=== PATIENT | female | born 1950 | race Caucasian/White ===

== ENCOUNTER 2016-11-09 16:31 | Emergency (ER) | payer BC, MEDICARE ==
[2016-11-09 17:02] LABS: BASOPHILS # (AUTO) 0.1 10^3/uL (0.0-0.1); EOSINOPHILS # (AUTO) 0.2 10^3/uL (0.0-0.7); EOSINOPHILS % (AUTO) 2.3 %; HCT - HEMATOCRIT 28.1 % (37.0-47.0); HGB - HEMOGLOBIN 8.8 g/dL (12.0-16.0); LYMPHOCYTES # (AUTO) 1.3 10^3/uL (1.5-3.5); LYMPHOCYTES % (AUTO) 16.6 %; MEAN CORPUSCULAR HEMOGLOBIN 24.4 pg (27.0-31.0); MEAN CORPUSCULAR HGB CONC 31.2 g/dL (32.0-36.0); MEAN CORPUSCULAR VOLUME 78.2 fL (81.0-99.0); MEAN PLATELET VOLUME 8.7 fL (7.9-10.8); MONOCYTES # (AUTO) 0.5 10^3/uL (0.0-1.0); MONOCYTES % (AUTO) 6.9 %; NEUTROPHILS # (AUTO) 5.6 10^3/uL (1.5-6.6); NEUTROPHILS % (AUTO) 73.2 %; RED BLOOD COUNT 3.59 10^6/uL (4.20-5.40); RED CELL DISTRIBUTION WIDTH 17.3 % (12.0-15.0); UNCORRECTED WHITE BLOOD COUNT 7.7 x10^3/uL; WHITE BLOOD COUNT 7.7 x10^3/uL (4.8-10.8)
[2016-11-09 17:19] LABS: ALBUMIN/GLOBULIN RATIO 1.2 (1.0-2.2); BILIRUBIN,TOTAL 0.4 mg/dL (0.2-1.0); CALCIUM 9.2 mg/dL (8.5-10.3); CREATININE 0.9 mg/dL (0.4-1.0); POTASSIUM 3.7 mmol/L (3.5-5.0); TOTAL PROTEIN 7.8 g/dL (6.7-8.2)
[2016-11-09 18:02] VITALS: BP 180/63
--- NOTE | 2016-11-09 18:03 | ED Physician Documentation ---
PD HPI DYSPNEA - Stated complaint Stated Complaint: SOA - Chief complaint Chief Complaint: General - History obtained from History obtained from: Patient - History of Present Illness Timing - onset: Yesterday Timing - onset during: Light activity (she was walking up a hil yesterday and felt short of breath for it, she says feeling similar to when she was anemic in the past.) Timing - details: Gradual onset, Now resolved Inciting event(s): No: Out of meds, URI Improved by: Rest Worsened by: Other (exertions) Associated symptoms: No: Fever, Cough, Wheezing, Chest pain / discomfort, Palpitations, Bilateral edema Similar symptoms before: Has not had sx before Recently seen: Not recently seen Review of Systems Constitutional: denies: Fever, Chills Nose: denies: Rhinorrhea / runny nose, Congestion Respiratory: denies: Cough GI: denies: Abdominal Pain, Nausea, Vomiting : denies: Dysuria, Frequency Neurologic: reports: Focal weakness, Seizure, Confused PD PAST MEDICAL HISTORY - Past Medical History Cardiovascular: None Respiratory: None Neuro: None Endocrine/Autoimmune: None - Past Surgical History Past Surgical History: Yes General: Appendectomy - Present Medications Home Medications: Ambulatory Orders Medication Instructions Recorded Confirmed Ferrous Sulfate 325 mg PO DAILY #30 tablet 11/09/16 traMADol [Ultram] 50 mg PO DAILY PRN 11/09/16 11/09/16 - Allergies Allergies/Adverse Reactions: Allergies Allergy/AdvReac Type Severity Reaction Status Date / Time sulfamethoxazole Allergy Itching Verified 11/09/16 16:42 [From ] trimethoprim [From ] Allergy Itching Verified 11/09/16 16:42 - Social History Does the pt smoke?: No Smoking Status: Never smoker Does the pt drink ETOH?: Yes Does the pt have substance abuse?: No - POLST Patient has POLST: No PD ED PE NORMAL - Vitals Vital signs reviewed: Yes - General General: Alert and oriented X 3, No acute distress, Well developed/nourished - HEENT HEENT: Pharynx benign - Neck Neck: Supple, no meningeal sign, No adenopathy - Cardiac Cardiac: RRR, No murmur - Respiratory Respiratory: Clear bilaterally - Abdomen Abdomen: Soft, Non tender - Extremities Extremities: No edema, No calf tenderness / cord Results - Vitals Vitals: Vital Signs - 24 hr 11/09/16 11/09/16 16:40 17:59 Temperature 36.7 C Heart Rate 93 81 Respiratory 14 16 Rate Blood Pressure 161/87 H 180/63 H O2 Saturation 98 97 Oxygen O2 Source Room air - Labs Labs: Laboratory Tests 11/09/16 11/09/16 11/09/16 16:57 16:57 16:57 WBC 7.7 RBC 3.59 L Hgb 8.8 L Hct 28.1 L MCV 78.2 L MCH 24.4 L MCHC 31.2 L RDW 17.3 H Plt Count 329 MPV 8.7 Neut # 5.6 Lymph # 1.3 L [place] # 0.5 Eos # 0.2 Baso # 0.1 Absolute Nucleated RBC 0.00 Nucleated RBCs 0.0 Sodium 140 Potassium 3.7 Chloride 104 Carbon Dioxide 27 Anion Gap 9.0 BUN 10 Creatinine 0.9 Estimated GFR (MDRD) 63 L Glucose 119 H Calcium 9.2 Iron 15 L TIBC 493 H % Saturation 3 L Transferrin 352 Total Bilirubin 0.4 AST 23 ALT 20 Alkaline Phosphatase 46 Total Protein 7.8 Albumin 4.2 Globulin 3.6 Albumin/Globulin Ratio 1.2 Lipase 30 Vitamin B12 Folate 11/09/16 16:57 WBC RBC Hgb Hct MCV MCH MCHC RDW Plt Count MPV Neut # Lymph # [place] # Eos # Baso # Absolute Nucleated RBC Nucleated RBCs Sodium Potassium Chloride Carbon Dioxide Anion Gap BUN Creatinine Estimated GFR (MDRD) Glucose Calcium Iron TIBC % Saturation Transferrin Total Bilirubin AST ALT Alkaline Phosphatase Total Protein Albumin Globulin Albumin/Globulin Ratio Lipase Vitamin B12 714 Folate 11.96 PD MEDICAL DECISION MAKING - ED course Complexity details: reviewed results (she is anemic but not low enough for transfusion. It appears iron def anemia. WIll give extra do), re-evaluated patient, considered differential, d/w patient Departure - Departure Disposition: 01 Home, Self Care Clinical Impression: Dyspnea Qualifiers: Dyspnea type: dyspnea on exertion Qualified Code(s): R06.09 - Other forms of dyspnea Anemia Qualifiers: Anemia type: iron deficiency Iron deficiency anemia type: unspecified iron deficiency Qualified Code(s): D50.9 - Iron deficiency anemia, unspecified Condition: Stable Record reviewed to determine appropriate education?: Yes Instructions: ED Dyspnea Shortness of Breath, ED Anemia Iron Deficiency Follow-Up: Ketty Blanco PA [Primary Care Provider] - Prescriptions: Ferrous Sulfate 325 mg PO DAILY #30 tablet Comments: The red cell indices on your blood count are suggestive of iron deficiency anemia. Your blood count is not low enough to need transfusion right now but your dyspnea could likely improve with higher blood count. Start an iron supplements daily. Follow-up with your primary care upcoming as planned. Activity as able. Discharge Date/Time: 11/09/16 18:30
[2016-11-09 19:01] LABS: IRON 15 ug/dL (28-170); TOTAL IRON BINDING CAPACITY 493 ug/dL (250-450); TRANSFERRIN 352 mg/dL (192-382)
[2016-11-09 19:22] LABS: FOLATE 11.96 ng/mL (5.90 - >24.8)
== END 2016-11-09 18:30 | disposition home or self-care (01) ==
LOC: ED 16:31
DX: D50.9 Iron deficiency anemia, unspecified (principal); R06.09 Other forms of dyspnea
CPT/HCPCS: 36415; 80053; 82607; 82746; 83540; 83690; 84466; 85025; 99283

== ENCOUNTER 2016-12-11 08:55 | Outpatient (CLI) | payer BC ==
--- NOTE | 2016-12-12 14:03 | Mammography Report ---
DIGITAL SCREENING MAMMOGRAM: 12/11/2016 CLINICAL INDICATION: A 66-year-old with history of late childbearing for baseline. TECHNIQUE: Routine CC and MLO projections were obtained of the breasts. FINDINGS: The breasts demonstrate scattered fibroglandular densities bilaterally. A few punctate, t ypically benign calcifications are present. No suspicious masses, clustered microcalcifications, or regions of architectural distortion are identified. IMPRESSION: BENIGN FINDINGS. RECOMMENDATION: Routine annual screening unless otherwise clinically indicated. BI-RADS category 2, benign findings. STANDARD QUALIFYING STATEMENTS 1. This examination was reviewed with the aid of Computer-Aided Detection (CAD). 2. A negative or benign imaging report should not delay biopsy if clinically suspicious findings are present. Consider surgical consultation if warranted. More than 5% of cancers are not identified by i maging. 3. Dense breasts may obscure an underlying neoplasm. JOB #: [id number] EXT JOB #:[id number]
== END 2016-12-11 08:56 | disposition home or self-care (01) ==
LOC: DI.S 08:55
PROVIDERS: ATTEND Physician Assistant
DX: Z12.31 Encounter for screening mammogram for malignant neoplasm of breast (principal)
CPT/HCPCS: 77067

== ENCOUNTER 2016-12-13 11:21 | Outpatient (CLI) | payer BC | END 2016-12-13 11:22 | disposition home or self-care (01) | LOC: DI 11:21 | PROVIDERS: ATTEND Physician Assistant | DX: I11.9 Hypertensive heart disease without heart failure (principal); Z82.49 Family history of ischemic heart disease and other diseases of the circulatory system | CPT/HCPCS: 93306 ==

== ENCOUNTER 2018-03-18 08:33 | Outpatient (CLI) | payer OTHER ==
--- NOTE | 2018-03-18 16:56 | DEXA Report ---
Reason: POST MENOPAUSAL Procedure Date: 03/18/2018 Accession Number: [id number] / [id number] Procedure: DEX - Dexa Spine and/or Hip CPT Code: FULL RESULT: EXAM: Dexa Spine and/or Hip DATE: 03/18/2018 9:27 AM CLINICAL HISTORY: POST MENOPAUSAL TECHNIQUE: Dual energy x-ray absorptiometry (DXA) was performed on a [employer] System. Regions measured are the AP Spine, femoral neck, and if needed forearm. COMPARISON: None. In accordance with the International Society for Clinical Densitometry (ISCD) guidelines, data from previous exams may be reanalyzed using current recommendations and techniques. This is done to allow a more accurate basis for comparison with the current study. FINDINGS: The data for the lumbar spine is as follows: BMD (g/cm/cm) T-SCORE Z-SCORE REGION L1 1.038 -0.8 -0.3 L2 1.059 -1.2 -0.7 L3 1.040 -1.3 -0.8 L4 1.168 -0.3 0.2 TOTAL 1.083 -0.8 -0.3 NOTE: All evaluable vertebrae are used for classification The data for the hip is as follows: BMD (g/cm/cm) T-SCORE Z-SCORE REGION Neck 0.890 -1.1 -0.3 TOTAL 0.913 -0.8 -0.3 NOTE: The femoral neck or total proximal femur, whichever is lowest, is used for classification. IMPRESSION: THE WHO CLASSIFICATION BASED ON THE INTERNATIONAL REFERENCE STANDARD IS OSTEOPENIA. THE FRACTURE RISK IS INCREASED. RECOMMENDATION: Patients with diagnosis of osteoporosis or osteopenia should have regular bone mineral density assessment. For those eligible for Medicare, routine testing is allowed once every 2 years. Testing frequency can be increased for patients who have rapidly progressing disease or for those who are receiving medical therapy to restore bone mass. COMMENT: World Health Organization (WHO) definitions for osteoporosis and osteopenia: NORMAL BMD: T-score at -1.0 or higher, fracture risk is low OSTEOPENIA BMD: T-score between -1.0 and -2.5, fracture risk is increased. OSTEOPOROSIS BMD: T-score at -2.5 or lower, fracture risk is high. National Osteoporosis Foundation recommends: 1. Obtain adequate dietary calcium (at least 1200 mg per day) and vitamin D (400-800 international units per day). 2. Participate, as appropriate, in regular weightbearing and muscle-strengthening exercise. 3. Avoid tobacco use and reduce alcohol and caffeine intake. 4. For more detailed information see the website at www.NOF.org.
== END 2018-03-18 08:34 | disposition home or self-care (01) ==
LOC: DI 08:33
PROVIDERS: ATTEND Physician Assistant
DX: M85.89 Other specified disorders of bone density and structure, multiple sites (principal); Z78.0 Asymptomatic menopausal state
CPT/HCPCS: 77080

== ENCOUNTER 2018-03-18 08:35 | Outpatient (CLI) | payer OTHER ==
--- NOTE | 2018-03-19 08:26 | Mammography Report ---
Reason: ANNUAL SCREENING Procedure Date: 03/18/2018 Accession Number: [id number] / [id number] Procedure: BOB - Screening Mammo Dig Bilat CPT Code: FULL RESULT: EXAM: Screening Mammo Dig Bilat DATE: 03/18/2018 9:12 AM CLINICAL HISTORY: Screening. No reported personal or family history of breast cancer. TECHNIQUE: Bilateral CC and MLO views were obtained. COMPARISON: 12/11/2016. FINDINGS: The breasts demonstrate diffuse fatty replacement bilaterally. Bilateral breasts: There are no suspicious masses, calcifications or areas of distortion. IMPRESSION: Negative examination RECOMMENDATION: Routine annual screening unless otherwise clinically indicated. BI-RADS CATEGORY 1: Negative STANDARD QUALIFYING STATEMENTS: 1. This examination was not reviewed with the aid of Computer-Aided Detection (CAD). 2. A negative or benign imaging report should not preclude biopsy if clinically suspicious findings are present. 3. Dense breasts may obscure an underlying neoplasm. 4. This examination was reviewed without the aid of 3D breast imaging (tomosynthesis).
== END 2018-03-18 08:36 | disposition home or self-care (01) ==
LOC: DI 08:35
PROVIDERS: ATTEND Physician Assistant
DX: Z12.31 Encounter for screening mammogram for malignant neoplasm of breast (principal)
CPT/HCPCS: 77067

== ENCOUNTER 2019-06-08 10:27 | Outpatient (CLI) | payer MEDICARE, OTHER ==
--- NOTE | 2019-06-08 11:23 | Mammography Report ---
Reason: ROUTINE MAMMO Procedure Date: 06/08/2019 Accession Number: [id number] / [id number] Procedure: MGS - Screening Mammo Dig Bilat CPT Code: Final Report FULL RESULT: EXAM: Screening Mammo Dig Bilat DATE: 06/08/2019 10:46 AM CLINICAL HISTORY: Screening encounter. History of late childbearing and early menses. TECHNIQUE: (B) - Bilateral CC and MLO views were obtained. Laterally exaggerated CC view is obtained on the right. COMPARISON: 03/18/2018 and 12/11/2016. PARENCHYMAL PATTERN: (A) - The breast(s) demonstrate(s) scattered fibroglandular densities. FINDINGS: There are no suspicious masses, calcifications, or areas of distortion. IMPRESSION: Negative examination. BI-RADS category 1. RECOMMENDATION: (ANNUAL) - Recommend routine annual screening mammography. BI-RADS CATEGORY: (1) - Negative. STANDARD QUALIFYING STATEMENTS: 1. This examination was reviewed with the aid of Computer-Aided Detection (CAD). 2. A negative or benign imaging report should not preclude biopsy if clinically suspicious findings are present. 3. Dense breasts may obscure an underlying neoplasm. 4. This examination was reviewed without the aid of 3D breast imaging (tomosynthesis).
== END 2019-06-08 10:28 | disposition home or self-care (01) ==
LOC: DI.S 10:27
PROVIDERS: ATTEND Physician Assistant
DX: Z12.31 Encounter for screening mammogram for malignant neoplasm of breast (principal)
CPT/HCPCS: 77067

== ENCOUNTER 2021-04-28 14:17 | Outpatient (CLI) | payer MEDICARE, OTHER ==
--- NOTE | 2021-04-29 10:07 | Mammography Report ---
BILATERAL DIGITAL SCREENING MAMMOGRAM 3D/2D: 04/28/2021 CLINICAL: Routine screening. Comparison is made to exams dated: 06/08/2019 mammogram, 03/18/2018 mammogram, and 12/11/2016 mammogra m - [facility]. There are scattered fibroglandular elements in both breasts. No significant masses, calcifications, or other findings are seen in either breast. There has been no significant interval change. IMPRESSION: NEGATIVE There is no mammographic evidence of malignancy. A 1 year screening mammogram is recommended. This exam was interpreted at Station ID: [id number]. NOTE: For mammograms, a report in lay terms will be sent to the patient. Approximately 15% of breast malignancies will not be visualized mammographically. In the management of a palpable breast mass, a negative mammogram must not discourage biopsy of a clinically suspicious lesion. Electronically Signed By: Josue Gan M.D. aty/penrad:04/29/2021 07:36:19 ACR BI-RADS Category 1: Negative 3341F PARENCHYMAL PATTERN: (A) - The breast(s) demonstrate(s) scattered fibroglandular densities. BI-RADS CATEGORY: (1) - 1 RECOMMENDATION: (ANNUAL) - Recommend routine annual screening mammography. [id number] 1 year screening LATERALITY: (B)
== END 2021-04-28 14:18 | disposition home or self-care (01) ==
LOC: DI.S 14:17
DX: Z12.31 Encounter for screening mammogram for malignant neoplasm of breast (principal)

== ENCOUNTER 2021-05-23 14:56 | Outpatient (CLI) | payer MEDICARE, OTHER ==
--- NOTE | 2021-05-24 09:38 | MRI Report ---
PROCEDURE: Knee RT W/O INDICATIONS: RIGHT KNEE PAIN TECHNIQUE: Noncontrast sagittal PD fast spin echo and T2 fast spin echo with fat saturation, sagittal 3-D gradie nt sequence with fat saturation; coronal T1 spin echo and PD fast spin echo with fat saturation, and axial PD fast spin echo with fat saturation through the knee. COMPARISON: None. Findings: Medial meniscus: No surface communication is appreciated. Deficiency of the posterior horn with minim al extrusion, concerning for occult tear. Lateral meniscus: No surface communication/tear. LIGAMENTS/TENDONS: Patellar tendon: Intact. Distal quadriceps tendon: Intact. Hoffa's fat pad: Subcentimeter foci of T2 hyperintense signal are seen. PCL: Intact. ACL: Intact. Lateral collateral ligament complex: No significant abnormality. Posterolateral corner: No significant abnormality. Medial collateral ligament: No significant abnormality.. MARROW: Patchy T2 hyperintense signal underlies the tibial spines. In addition, T2 hyperintense foci are seen underlying the tibial spines, measuring up to 7.7 mm, which may reflect intraosseous gangli ons or fibrocystic change. CARTILAGE: Signal heterogeneity with fissuring of the medial and lateral femoral condyle hyaline cart ilage. Deficiency of the hyaline cartilage overlying the patellar apex and lateral patella facet. Muscles: No significant edema or atrophy. Joint effusion/Ly's cyst: Small to moderate joint effusion. No significant popliteal fossa fluid. Subcutaneous soft tissues: Prepatellar edema. IMPRESSION: 1. Deficiency of the posterior horn, medial meniscus with minimal extrusion, concerning for occult te ar. 2. Edema within Hoffa's fat, which is nonspecific but can be seen in the setting of impingement. 3. Edema underlying the tibial spines with intraosseous ganglions versus fibrocystic change. 4. Tricompartment hyaline cartilage degenerative change as detailed above. 5. Small to moderate joint effusion. 6. Prepatellar edema. Reviewed by: Francois Bartholomew MD on 05/24/2021 9:36 AM PST Approved by: Francois Bartholomew MD on 05/24/2021 9:36 AM PST Station ID: [id number]
== END 2021-05-23 14:57 | disposition home or self-care (01) ==
LOC: DI 14:56
PROVIDERS: ATTEND Registered Nurse
DX: R93.6 Abnormal findings on diagnostic imaging of limbs (principal); R93.89 Abnormal findings on diagnostic imaging of other specified body structures; M17.11 Unilateral primary osteoarthritis, right knee; M25.461 Effusion, right knee

== ENCOUNTER 2023-05-19 14:49 | Outpatient (CLI) | payer MEDICARE, OTHER ==
--- NOTE | 2023-05-21 09:44 | Mammography Report ---
BILATERAL DIGITAL SCREENING MAMMOGRAM 3D/2D: 05/19/2023 CLINICAL: Routine screening. Comparison is made to exams dated: 04/28/2021 mammogram, 06/08/2019 mammogram, and 03/18/2018 mammogra m - [facility]. There are scattered areas of fibroglandular density in both breasts (category b / 25%-50% glandular t issue). There is an asymmetry in the right breast posterior depth lateral region seen on the craniocaudal vie w only. No other significant masses, calcifications, or other findings are seen in either breast. IMPRESSION: INCOMPLETE: NEEDS ADDITIONAL IMAGING EVALUATION The asymmetry in the right breast is indeterminate. Additional views with possible ultrasound are re commended. Based on the Tyrer Cuzick model (a risk assessment model) the patient's lifetime risk is 5.2% and her 10 year risk is 3.5%. According to the ACR, ACS, and NCCN guidelines, an annual breast MRI exam chucho g with mammogram is recommended if the patient's lifetime risk is 20% or greater. This exam was interpreted at Station ID: [id number]. NOTE: For mammograms, a report in lay terms will be sent to the patient. Approximately 15% of breast malignancies will not be visualized mammographically. In the management of a palpable breast mass, a negative mammogram must not discourage biopsy of a clinically suspicious lesion. Electronically Signed By: Brittany browning/chloe:05/20/2023 15:02:04 ACR BI-RADS Category 0: Incomplete 3340F PARENCHYMAL PATTERN: (A) - The breast(s) demonstrate(s) scattered fibroglandular densities. BI-RADS CATEGORY: (0) - 0 Mammo and [place] [id number] Immediate follow-up LATERALITY: (B)
== END 2023-05-19 14:50 | disposition home or self-care (01) ==
LOC: DI.S 14:49
DX: Z12.31 Encounter for screening mammogram for malignant neoplasm of breast (principal); R92.323 Mammographic fibroglandular density, bilateral breasts; R92.8 Other abnormal and inconclusive findings on diagnostic imaging of breast

== ENCOUNTER 2023-06-12 07:48 | Outpatient (CLI) | payer MEDICARE, OTHER ==
--- NOTE | 2023-06-12 08:54 | Mammography Report ---
UNILATERAL RIGHT DIGITAL DIAGNOSTIC MAMMOGRAM 3D/2D WITH EXAGGERATED CC SPOT COMPRESSION: 06/12/2023 CLINICAL: Patient returns today to evaluate an asymmetry in the right breast. Comparison is made to exams dated: 05/19/2023 mammogram, 04/28/2021 mammogram, 06/08/2019 mammogram, mammogram, and 12/11/2016 mammogram - [facility]. There are scattered areas of fibroglandular density in the right breast (category b / 25%-50% glandul ar tissue). The asymmetry in the right breast posterior depth lateral region seen on the craniocaudal view is no t seen in additional views. No other significant masses or calcifications are seen in the breast. IMPRESSION: BENIGN The asymmetry in the right breast seen on the screening mammogram likely respresents superimposed fib roglandular tissue and is benign. There is no mammographic evidence of malignancy. Return to annual mammogram screening schedule is rec ommended. Based on the Tyrer Cuzick model (a risk assessment model) the patient's lifetime risk is 5.2% and her 10 year risk is 3.5%. According to the ACR, ACS, and NCCN guidelines, an annual breast MRI exam chucho g with mammogram is recommended if the patient's lifetime risk is 20% or greater. This exam was interpreted at Station ID: [id number]. NOTE: For mammograms, a report in lay terms will be sent to the patient. Approximately 15% of breast malignancies will not be visualized mammographically. In the management of a palpable breast mass, a negative mammogram must not discourage biopsy of a clinically suspicious lesion. Electronically Signed By: Brittany browning/:06/12/2023 08:22:16 ACR BI-RADS Category 2: Benign Finding(s) 3342F PARENCHYMAL PATTERN: (A) - The breast(s) demonstrate(s) scattered fibroglandular densities. BI-RADS CATEGORY: (2) - 2 Mammogram [id number] return to screening LATERALITY: (B)
== END 2023-06-12 07:49 | disposition home or self-care (01) ==
LOC: DI 07:48
PROVIDERS: ATTEND Registered Nurse
DX: R92.2 Inconclusive mammogram (principal); R92.321 Mammographic fibroglandular density, right breast